=== PATIENT | male | born 1975 | race Caucasian/White ===

== ENCOUNTER → 2021-02-28 | Outpatient (CLI) | payer OTHER | LOC: M.ULTRA 02-27 09:26 | PROVIDERS: ATTEND Internal Medicine | DX: N20.0 Calculus of kidney (principal); N50.89 Other specified disorders of the male genital organs; R79.89 Other specified abnormal findings of blood chemistry; N10 Acute pyelonephritis; R31.0 Gross hematuria; N50.3 Cyst of epididymis; R16.0 Hepatomegaly, not elsewhere classified ==